=== PATIENT | female | born 1985 | race Caucasian/White ===

== ENCOUNTER 2022-03-17 08:09 | Emergency (ER) | payer SELFPAY ==
[~2022-03-17] VITALS: Ht 167.6 cm; Wt 89.0 kg
[2022-03-17 08:59] VITALS: BP 123/89
[2022-03-17] MEDS ORDERED: TRAMADOL 50MG TABLET PO ONE (09:15)
[2022-03-17] MEDS ORDERED: IBUPROFEN 600MG TABLET PO ONE (09:15)
[2022-03-17] MEDS ORDERED: ONDANSETRON 4MG ODT PO ONE (09:15)
[2022-03-17] MEDS ORDERED: TRAM50TA3 MT (14:54)
[2022-03-17] MEDS ORDERED: IBUP-2029 MT (14:54)
== END 2022-03-17 15:13 | disposition home or self-care (01) ==
LOC: ER 08:27
DX: N94.6 Dysmenorrhea, unspecified (principal)
CPT/HCPCS: 76830; 76856; 99284